=== PATIENT | male | born 1970 | race Two or more races ===

== ENCOUNTER 2018-03-07 20:50 | Inpatient (IN) ==
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
[2018-03-07 21:17] LABS: Baso # (Auto) 0.1 th/mm3 (0.0-0.2); Baso % (Auto) 0.6 % (0.0-2.0); Eos # (Auto) 0.1 th/mm3 (0.0-0.4); Eos % (Auto) 1.2 % (0.0-4.0); Hematocrit 39.4 % (39.0-51.0); Hemoglobin 14.1 gm/dL (13.0-17.0); Lymph # (Auto) 3.4 th/mm3 (1.0-4.8); Lymph % (Auto) 32.3 % (9.0-44.0); Mean Corpuscular HGB Conc 35.9 % (32.0-36.0); Mean Corpuscular Hemoglobin 31.8 pg (27.0-34.0); Mean Corpuscular Volume 88.7 fL (80.0-100.0); Mean Platelet Volume 8.1 fL (7.0-11.0); Mono # (Auto) 0.6 th/mm3 (0.0-0.9); Mono % (Auto) 5.6 % (0.0-8.0); Neut # (Auto) 6.3 th/mm3 (1.8-7.7); Neut % (Auto) 60.3 % (16.0-70.0); Platelet Count 287 th/mm3 (150-450); Red Blood Count 4.45 mil/mm3 (4.50-5.90); White Blood Count 10.4 th/mm3 (4.0-11.0)
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
[2018-03-07 21:34] LABS: Activated Partial Thrombo Time 20.1 sec (24.3-30.1); Prothrombin Time 9.9 sec (9.8-11.6)
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
[2018-03-07] MEDS ORDERED: NS IV.SIG PRN (21:52)
[2018-03-07] MEDS ORDERED: HYDROMORPHONE IV.SIG PRN (21:52)
[2018-03-07] MEDS ORDERED: Acetaminophen 325 MG Tablet PO PRN (21:52)
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
[2018-03-07 21:55] LABS: Alanine Aminotransferase 256 U/L (12-78); Albumin 3.7 g/dL (3.4-5.0); Anion Gap 13 meq/L (5-15); Aspartate Aminotransferase 393 U/L (15-37); Blood Urea Nitrogen 16 mg/dL (7-18); Calcium 8.6 mg/dL (8.5-10.1); Carbon Dioxide 22.3 meq/L (21.0-32.0); Chloride 107 meq/L (98-107); Glomerular Filtration Rate 43 mL/min (>89); Glucose,Random 110 mg/dL (74-106); Potassium 3.3 meq/L (3.5-5.1); Sodium 142 meq/L (136-145)
[2018-03-07 21:57] LABS: Alkaline Phosphatase 78 U/L (45-117); Total Protein 7.5 g/dL (6.4-8.2)
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
[2018-03-07] MEDS: diazePAM 2 MG Tablet PO SCH (22:57)
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
[2018-03-07] MEDS: HYDROmorphone PF Inj 2 MG/ML Vial IV.PUSH PRN (23:56)
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
[2018-03-08] MEDS ORDERED: Chlorhexidine Gluconate 2% 1 Pack (2 Cloths) TOPICAL PRN (04:00)
[2018-03-08] MEDS: HYDROmorphone PF Inj 2 MG/ML Vial IV.PUSH PRN ×5 (04:26→18:09)
[2018-03-08] MEDS ORDERED: HYDROmorphone PF Inj 2 MG/ML Vial IV.PUSH ONE (04:45)
[2018-03-08] MEDS: Chlorhexidine Gluconate 2% 1 Pack (2 Cloths) TOPICAL SCH (05:46)
[2018-03-08 05:53] LABS: Baso # (Auto) 0.1 th/mm3 (0.0-0.2); Baso % (Auto) 0.4 % (0.0-2.0); Eos % (Auto) 0.3 % (0.0-4.0); Hematocrit 38.3 % (39.0-51.0); Lymph # (Auto) 1.1 th/mm3 (1.0-4.8); Lymph % (Auto) 7.4 % (9.0-44.0); Mean Corpuscular HGB Conc 34.1 % (32.0-36.0); Mean Corpuscular Hemoglobin 30.6 pg (27.0-34.0); Mean Corpuscular Volume 89.9 fL (80.0-100.0); Mean Platelet Volume 8.2 fL (7.0-11.0); Mono # (Auto) 1.2 th/mm3 (0.0-0.9); Mono % (Auto) 7.6 % (0.0-8.0); Neut # (Auto) 12.8 th/mm3 (1.8-7.7); Neut % (Auto) 84.3 % (16.0-70.0); Platelet Count 266 th/mm3 (150-450); Red Blood Count 4.26 mil/mm3 (4.50-5.90); Red Cell Distribution Width 13.7 % (11.6-17.2); White Blood Count 15.2 th/mm3 (4.0-11.0)
[2018-03-08] MEDS: diazePAM 2 MG Tablet PO SCH ×3 (05:58→21:09)
[2018-03-08 06:16] LABS: Calcium 8.1 mg/dL (8.5-10.1); Carbon Dioxide 24.2 meq/L (21.0-32.0); Potassium 4.2 meq/L (3.5-5.1)
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
[2018-03-08] MEDS: Senna/Docusate Sodium 8.6/50 MG Tablet PO SCH ×2 (08:06→21:09)
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
[2018-03-08] MEDS ORDERED: Docusate Sodium 100 MG Capsule PO SCH (09:00)
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
[2018-03-08 19:57] LABS: Hematocrit 39.4 % (39.0-51.0); Hemoglobin 13.2 gm/dL (13.0-17.0)
[2018-03-08] MEDS: Famotidine 20 MG Tablet PO SCH (21:09)
[2018-03-09] MEDS: Chlorhexidine Gluconate 2% 1 Pack (2 Cloths) TOPICAL SCH (04:49)
[2018-03-09] MEDS: diazePAM 2 MG Tablet PO SCH (05:04)
[2018-03-09 05:13] LABS: Baso % (Auto) 0.3 % (0.0-2.0); Eos # (Auto) 0.1 th/mm3 (0.0-0.4); Eos % (Auto) 0.9 % (0.0-4.0); Hematocrit 37.6 % (39.0-51.0); Hemoglobin 12.7 gm/dL (13.0-17.0); Lymph % (Auto) 8.1 % (9.0-44.0); Mean Corpuscular HGB Conc 33.7 % (32.0-36.0); Mean Corpuscular Hemoglobin 30.6 pg (27.0-34.0); Mean Corpuscular Volume 90.8 fL (80.0-100.0); Mean Platelet Volume 8.8 fL (7.0-11.0); Mono # (Auto) 0.9 th/mm3 (0.0-0.9); Mono % (Auto) 7.4 % (0.0-8.0); Neut # (Auto) 10.4 th/mm3 (1.8-7.7); Neut % (Auto) 83.3 % (16.0-70.0); Platelet Count 222 th/mm3 (150-450); Red Blood Count 4.15 mil/mm3 (4.50-5.90); Red Cell Distribution Width 13.7 % (11.6-17.2); White Blood Count 12.5 th/mm3 (4.0-11.0)
[2018-03-09 05:42] LABS: Calcium 8.3 mg/dL (8.5-10.1); Carbon Dioxide 25.1 meq/L (21.0-32.0); Potassium 4.1 meq/L (3.5-5.1)
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
--- NOTE | 2018-03-09 07:31 | XR ---
EXAM DATE: 03/09/2018 7:06 AM EDT AGE/SEX: 47 years / Male INDICATIONS: Pain right chest, right side chest tube CLINICAL DATA: This is the patient's subsequent encounter. Patient reports that signs and symptoms h ave been present for 3 days and indicates a pain score of 8/10. MEDICAL/SURGICAL HISTORY: . right rib fractures Chest tube, right. COMPARISON: [facility] – [place], CHEST 1V SINGLE AP, 03/08/2018. . FINDINGS: Subcutaneous emphysema on the right side has not changed. No definite pneumothorax is seen for techni que. Right lung base consolidation may be present as well. There is slight worsening of pulmonary edema since the prior exam. CONCLUSION: Slight worsening pulmonary edema. Right lung base consolidation and pneumonia at this site is difficu lt to exclude. Electronically signed by: Tavon Rosario MD 03/09/2018 7:29 AM EDT
[2018-03-09] MEDS: Senna/Docusate Sodium 8.6/50 MG Tablet PO SCH ×2 (08:57→20:35)
[2018-03-09] MEDS: Famotidine 20 MG Tablet PO SCH ×2 (08:57→20:39)
[2018-03-09] MEDS: Lidocaine 5% Patch T-DERMAL SCH (08:57)
[2018-03-09] MEDS: HYDROmorphone PF Inj 2 MG/ML Vial IV.PUSH PRN ×4 (09:20→20:36)
[2018-03-09] MEDS: Enoxaparin Inj 40 MG/0.4 ML Syringe SQ SCH (11:02)
[2018-03-09] MEDS: diazePAM 5 MG Tablet PO SCH ×2 (11:03→17:20)
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
[2018-03-10] MEDS: HYDROmorphone PF Inj 2 MG/ML Vial IV.PUSH PRN ×6 (00:32→17:27)
[2018-03-10] MEDS: diazePAM 5 MG Tablet PO SCH ×3 (02:04→17:02)
[2018-03-10] MEDS: Chlorhexidine Gluconate 2% 1 Pack (2 Cloths) TOPICAL SCH (05:17)
[2018-03-10 06:43] LABS: Baso % (Auto) 0.3 % (0.0-2.0); Eos # (Auto) 0.1 th/mm3 (0.0-0.4); Eos % (Auto) 0.9 % (0.0-4.0); Hematocrit 37.3 % (39.0-51.0); Hemoglobin 12.7 gm/dL (13.0-17.0); Lymph # (Auto) 0.5 th/mm3 (1.0-4.8); Lymph % (Auto) 4.6 % (9.0-44.0); Mean Corpuscular Hemoglobin 30.7 pg (27.0-34.0); Mean Corpuscular Volume 90.3 fL (80.0-100.0); Mean Platelet Volume 8.7 fL (7.0-11.0); Mono # (Auto) 0.7 th/mm3 (0.0-0.9); Mono % (Auto) 6.6 % (0.0-8.0); Neut # (Auto) 9.7 th/mm3 (1.8-7.7); Neut % (Auto) 87.6 % (16.0-70.0); Platelet Count 232 th/mm3 (150-450); Red Blood Count 4.13 mil/mm3 (4.50-5.90); White Blood Count 11.1 th/mm3 (4.0-11.0)
[2018-03-10 07:06] LABS: Alanine Aminotransferase 263 U/L (12-78); Albumin 3.1 g/dL (3.4-5.0); Alkaline Phosphatase 122 U/L (45-117); Anion Gap 9 meq/L (5-15); Aspartate Aminotransferase 173 U/L (15-37); Blood Urea Nitrogen 13 mg/dL (7-18); Calcium 9.1 mg/dL (8.5-10.1); Carbon Dioxide 26.8 meq/L (21.0-32.0); Chloride 97 meq/L (98-107); Glomerular Filtration Rate 74 mL/min (>89); Glucose,Random 119 mg/dL (74-106); Potassium 3.9 meq/L (3.5-5.1); Sodium 133 meq/L (136-145); Total Protein 7.6 g/dL (6.4-8.2)
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
[2018-03-10] MEDS: Lidocaine 5% Patch T-DERMAL SCH (09:30)
[2018-03-10] MEDS: Enoxaparin Inj 40 MG/0.4 ML Syringe SQ SCH (09:33)
[2018-03-10] MEDS: Senna/Docusate Sodium 8.6/50 MG Tablet PO SCH ×2 (09:34→20:36)
[2018-03-10] MEDS: Famotidine 20 MG Tablet PO SCH ×2 (09:34→20:37)
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
[2018-03-10] MEDS: Melatonin 5 MG Tablet PO SCH (20:37)
[2018-03-11] MEDS: diazePAM 5 MG Tablet PO SCH ×4 (02:19→19:09)
[2018-03-11] MEDS: Chlorhexidine Gluconate 2% 1 Pack (2 Cloths) TOPICAL SCH (05:18)
[2018-03-11 05:33] LABS: Baso % (Auto) 0.4 % (0.0-2.0); Eos # (Auto) 0.1 th/mm3 (0.0-0.4); Eos % (Auto) 1.4 % (0.0-4.0); Hemoglobin 12.5 gm/dL (13.0-17.0); Lymph # (Auto) 0.5 th/mm3 (1.0-4.8); Lymph % (Auto) 5.7 % (9.0-44.0); Mean Corpuscular HGB Conc 33.8 % (32.0-36.0); Mean Corpuscular Hemoglobin 30.9 pg (27.0-34.0); Mean Corpuscular Volume 91.5 fL (80.0-100.0); Mean Platelet Volume 8.7 fL (7.0-11.0); Mono # (Auto) 0.8 th/mm3 (0.0-0.9); Mono % (Auto) 8.5 % (0.0-8.0); Platelet Count 244 th/mm3 (150-450); Red Blood Count 4.04 mil/mm3 (4.50-5.90); Red Cell Distribution Width 14.1 % (11.6-17.2); White Blood Count 9.5 th/mm3 (4.0-11.0)
[2018-03-11 05:48] LABS: Alanine Aminotransferase 189 U/L (12-78); Albumin 2.9 g/dL (3.4-5.0); Alkaline Phosphatase 144 U/L (45-117); Anion Gap 6 meq/L (5-15); Aspartate Aminotransferase 93 U/L (15-37); Blood Urea Nitrogen 15 mg/dL (7-18); Calcium 8.7 mg/dL (8.5-10.1); Carbon Dioxide 26.7 meq/L (21.0-32.0); Chloride 99 meq/L (98-107); Glomerular Filtration Rate 83 mL/min (>89); Glucose,Random 116 mg/dL (74-106); Potassium 4.7 meq/L (3.5-5.1); Sodium 132 meq/L (136-145); Total Protein 7.2 g/dL (6.4-8.2)
[2018-03-11] MEDS ORDERED: Sod Chloride 0.9% Inj 1,000 ML IV.CONT SCH (07:00)
[2018-03-11] MEDS: Famotidine 20 MG Tablet PO SCH ×2 (08:33→20:38)
[2018-03-11] MEDS: Senna/Docusate Sodium 8.6/50 MG Tablet PO SCH ×2 (08:33→20:38)
[2018-03-11] MEDS: Lidocaine 5% Patch T-DERMAL SCH (08:34)
[2018-03-11] MEDS: Enoxaparin Inj 40 MG/0.4 ML Syringe SQ SCH ×2 (08:35→19:08)
--- NOTE | 2018-03-11 08:41 | XR ---
EXAM DATE: 03/11/2018 8:30 AM EDT AGE/SEX: 47 years / Male INDICATIONS: Short of breath, coughing, pain right chest, evaluate right side chest tube CLINICAL DATA: This is the patient's subsequent encounter. Patient reports that signs and symptoms h ave been present for 4 - 6 days and indicates a pain score of 10/10. MEDICAL/SURGICAL HISTORY: None. None. COMPARISON: [facility] [place], CHEST 1V SINGLE AP, 03/10/2018. . FINDINGS: A single AP view of the chest demonstrates the lungs to be symmetrically aerated interval impro vement in the prominence of the interstitial markings seen previously. Bibasilar atelectatic changes persist, right greater than left. Right-sided thoracostomy tube is unchanged in position without pneu mothorax. There is suggestion of some right-sided rib fractures as well as a right clavicular fractur e. Heart size is normal. CONCLUSION: 1. Interstitial markings are less prominent characteristic of some improving pulmonary edema/vascula r congestion. 2. Stable bibasilar atelectatic changes, right worse than left. 3. Stable position of right-sided thoracostomy tube without pneumothorax. 4. Right rib and right clavicular fractures, unchanged. Electronically signed by: Triston Zhang MD 03/11/2018 8:39 AM EDT
[2018-03-11] MEDS: HYDROmorphone PF Inj 2 MG/ML Vial IV.PUSH PRN (10:07)
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
[2018-03-11] MEDS: Melatonin 5 MG Tablet PO SCH (20:38)
[2018-03-12] MEDS: diazePAM 5 MG Tablet PO SCH ×2 (04:51→10:20)
[2018-03-12 06:31] LABS: Baso % (Auto) 0.5 % (0.0-2.0); Eos # (Auto) 0.2 th/mm3 (0.0-0.4); Eos % (Auto) 1.9 % (0.0-4.0); Hematocrit 36.3 % (39.0-51.0); Lymph # (Auto) 0.9 th/mm3 (1.0-4.8); Lymph % (Auto) 10.7 % (9.0-44.0); Mean Corpuscular HGB Conc 33.2 % (32.0-36.0); Mean Corpuscular Hemoglobin 30.6 pg (27.0-34.0); Mean Platelet Volume 8.5 fL (7.0-11.0); Mono % (Auto) 12.2 % (0.0-8.0); Neut # (Auto) 6.2 th/mm3 (1.8-7.7); Neut % (Auto) 74.7 % (16.0-70.0); Platelet Count 279 th/mm3 (150-450); Red Blood Count 3.94 mil/mm3 (4.50-5.90); Red Cell Distribution Width 14.2 % (11.6-17.2); White Blood Count 8.2 th/mm3 (4.0-11.0)
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
[2018-03-12 07:28] LABS: Alanine Aminotransferase 129 U/L (12-78); Albumin 2.8 g/dL (3.4-5.0); Alkaline Phosphatase 125 U/L (45-117); Anion Gap 9 meq/L (5-15); Aspartate Aminotransferase 47 U/L (15-37); Blood Urea Nitrogen 19 mg/dL (7-18); Carbon Dioxide 28.5 meq/L (21.0-32.0); Chloride 97 meq/L (98-107); Glomerular Filtration Rate 81 mL/min (>89); Glucose,Random 92 mg/dL (74-106); Potassium 3.9 meq/L (3.5-5.1); Sodium 134 meq/L (136-145); Total Protein 7.2 g/dL (6.4-8.2)
[2018-03-12] MEDS: Famotidine 20 MG Tablet PO SCH (09:00)
[2018-03-12] MEDS: Senna/Docusate Sodium 8.6/50 MG Tablet PO SCH (09:00)
[2018-03-12 09:32] VITALS: BP 114/78; PULSE 95; TEMP 98
[2018-03-12] MEDS: Lidocaine 5% Patch T-DERMAL SCH (09:37)
[2018-03-12] MEDS: Enoxaparin Inj 40 MG/0.4 ML Syringe SQ SCH (10:20)
[2018-03-12 11:07] VITALS: O2SAT 94
[2018-03-12 13:29] VITALS: RESP 16
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
== END 2018-03-12 14:58 | disposition home or self-care (01) ==
LOC: NEPI 20:50 → EDBD 21:26 → NEDA 21:26 → N03 21:47 → N06 03-09 18:48
PROVIDERS: ADMIT Surgery; ATTEND Surgery